=== PATIENT | male | born 1965 | race Caucasian/White ===

== ENCOUNTER 2018-06-09 13:08 | Emergency (ER) | payer BC ==
[2018-06-09] MEDS ORDERED: Acetaminophen/oxyCODONE 325-5 MG Tab PO ONE (13:13)
--- NOTE | 2018-06-09 13:21 | EDM.PDOC ---
ED HPI GENERAL MEDICAL PROBLEM - General Chief Complaint: Lower Extremity Injury/Pain Stated Complaint: INJURED ANKLE Time Seen by Provider: 06/09/18 13:10 Source of Information: Reports: Patient, RN History Limitations: Reports: No Limitations - History of Present Illness INITIAL COMMENTS - FREE TEXT/NARRATIVE: 53 yo male injured his L distal leg just before arrival today when he lost his balance and fell. Not able to bear weight. No other injuries. 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: Other (see below) (none) Left Ankle Pain Score (Numeric/FACES): 8 - Related Data Allergies Allergy/AdvReac Type Severity Reaction Status Date / Time No Known Allergies Allergy Verified 06/09/18 13:23 Home Meds: Home Meds Acetaminophen/HYDROcodone [[place] 325-5 MG] 1 - 2 tab PO Q6H PRN #20 tab [Rx] Aspirin [Halfprin] 1 tab PO DAILY 06/09/18 [History] Fenofibrate 1 tab PO DAILY 06/09/18 [History] Review of Systems - Review of Systems Review Of Systems: See Below Constitutional: Reports: No Symptoms Musculoskeletal: Reports: Leg Pain (L distal) Skin: Reports: No Symptoms Neurological: Reports: No Symptoms ED EXAM, GENERAL - Physical Exam Exam: See Below Exam Limited By: No Limitations General Appearance: Alert, WD/WN, No Apparent Distress Eye Exam: Bilateral Eye: Normal Inspection Ears: Normal External Exam, Normal Canal, Hearing Grossly Normal Ear Exam: Bilateral Ear: Auricle Normal, Canal Normal Nose: Normal Inspection, No Blood Throat/Mouth: Normal Inspection, Normal Lips, Normal Oropharynx, Normal Voice, No Airway Compromise Head: Atraumatic, Normocephalic Neck: Normal Inspection Respiratory/Chest: No Respiratory Distress, Lungs Clear, Normal Breath Sounds, No Accessory Muscle Use Cardiovascular: Regular Rate, Rhythm Extremities: Pedal Edema (subtle swelling to distal tib/fib area. ), Leg Pain ( distal L leg). No: Non-Tender, No Pedal Edema, Rimma's Sign, Increased Warmth, Mottled, Pallor, Redness Neurological: Alert, Oriented Psychiatric: Normal Affect, Normal Mood Skin Exam: Warm, Dry, Intact, Normal Color, No Rash Course - Vital Signs Text/Narrative:: Cam walker and crutches provided. X-rays placed on disc to send with patient. Last Recorded V/S: Last Vital Signs Temp 37.1 C 06/09/18 13:15 Pulse 68 06/09/18 13:15 Resp 16 06/09/18 13:15 BP 116/70 06/09/18 13:15 Pulse Ox 98 06/09/18 13:15 - Orders/Labs/Meds Orders: Active Orders 24 hr Category Date Time Status Tibia Fibula Lt [CR] Stat Exams 06/09/18 13:12 Taken Meds: Medications Discontinued Medications Generic Name Dose Route Start Last Admin Trade Name Freq PRN Reason Stop Dose Admin Oxycodone/Acetaminophen 1 tab 06/09/18 13:13 06/09/18 13:27 Percocet 325-5 Mg PO 06/09/18 13:14 1 tab ONETIME ONE Administration - Radiology Interpretation Free Text/Narrative:: L tib/fib X-ray-min. displaced distal fibula fx Departure - Departure Time of Disposition: 14:00 Disposition: Home, Self-Care 01 Condition: Fair Clinical Impression: Fracture of fibula Fracture of distal fibula Qualifiers: Encounter type: initial encounter Fracture type: closed Fracture morphology: other fracture Laterality: left Qualified Code(s): S82.832A - Other fracture of upper and lower end of left fibula, initial encounter for closed fracture Clinical Impression: (Ruled Out): Fracture of tibia - Discharge Information *PRESCRIPTION DRUG MONITORING PROGRAM REVIEWED*: No *COPY OF PRESCRIPTION DRUG MONITORING REPORT IN PATIENT KAY: No Prescriptions: Acetaminophen/HYDROcodone [[place] 325-5 MG] 1 - 2 tab PO Q6H PRN #20 tab PRN Reason: Pain Referrals: PCP,None [Primary Care Provider] - Forms: ED Department Discharge Additional Instructions: Elevate leg as much as possible above the heart. Take ibuprofen 400 mg every 6 hrs with food for pain relief. Add [place] OR acetaminophen for added relief. F/U with your orthopedic doctor back home within the week, take X-rays along to your appt. Use the Cam walker and crutches to help you get around. - My Orders Last 24 Hours: My Active Orders 06/09/18 13:12 Tibia Fibula Lt [CR] Stat - Assessment/Plan Last 24 Hours: My Active Orders 06/09/18 13:12 Tibia Fibula Lt [CR] Stat
--- NOTE | 2018-06-09 13:53 | CRLCR ---
INDICATION: Injury to distal left leg TECHNIQUE: AP and lateral views of the left tibia and fibula COMPARISON: None FINDINGS AND IMPRESSION: There is an oblique fracture of the distal left fibula, without significant displacement. There is overlying soft tissue swelling. Alignment of the ankle appears anatomic. Please note, some images are incorrectly labeled "Right." Only the left tibia and fibula were imaged. Dictated by Aurelia Menendez MD @ 06/09/2018 1:51:08 PM Dictated by: Aurelia Menendez MD @ 06/09/2018 13:51:16 (Electronically Signed)
== END 2018-06-09 14:15 | disposition home or self-care (01) ==
LOC: JP.ED 13:08
DX: S82.432A Displaced oblique fracture of shaft of left fibula, initial encounter for closed fracture (principal); Z79.82 Long term (current) use of aspirin; Z79.899 Other long term (current) drug therapy; W19.XXXA Unspecified fall, initial encounter
CPT/HCPCS: 73590; 99283; A9270

== ENCOUNTER 2020-06-28 00:29 | Emergency (ER) | payer BC ==
[2020-06-28] MEDS ORDERED: LORazepam 1 MG Tab PO ONE (01:15)
--- NOTE | 2020-06-28 01:22 | EDM.PDOCBH ---
ED HPI GENERAL MEDICAL PROBLEM - General Chief Complaint: Behavioral/Psych Stated Complaint: MENTAL HEALTH Time Seen by Provider: 06/28/20 00:45 Source of Information: Reports: Patient History Limitations: Reports: No Limitations - History of Present Illness INITIAL COMMENTS - FREE TEXT/NARRATIVE: Almas is a 55-year-old male presenting to the ED for suicide ideation and significant anxiety and depression. 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 During the drive up he started developing troubling thoughts of how he was going to and whether a being that by natural causes are is on hand. He became more more distressed about these thoughts being isolated at his cabin tonight and called his . The patient has a very significant history for anxiety and started to perseverate on his thoughts of suicide. He became quite concerned because there is a loaded gun at his cabin and he was scared that he would actually carry it out by self-inflicted gunshot. This prompted him to come into the ED for evaluation. The patient does use recreational marijuana and did smoke marijuana today. He says typically the marijuana helps with his anxiety. He is on citalopram 2.5 mg every other day for his anxiety. He has not clear as to why he is having these thoughts and denies any significant stressors. He reports good sleeping habits. He reports a good appetite. He reports good concentration. He is successful at work. He is concerned that if he goes back to his cabin but he will carry this out. He has been calm and cooperative during the interview. - Related Data Allergies Allergy/AdvReac Type Severity Reaction Status Date / Time No Known Allergies Allergy Verified 06/28/20 00:39 Home Meds: Home Meds Acetaminophen/HYDROcodone [[place] 325-5 MG] 1 - 2 tab PO Q6H PRN #20 tab 06/09/18 [Rx] Aspirin [Halfprin] 1 tab PO DAILY 06/09/18 [History] Fenofibrate 1 tab PO DAILY 06/09/18 [History] Citalopram [Citalopram HBr] 10 mg PO ASDIRECTED 06/28/20 [History] Past Medical History HEENT History: Reports: None Cardiovascular History: Reports: High Cholesterol, Other (See Below) Other Cardiovascular History: bicuspid aorta Genitourinary History: Reports: Renal Calculus Musculoskeletal History: Reports: Fracture Psychiatric History: Reports: Anxiety, Depression, Mood Swings, Suicidal Ideation, Other (See Below) Other Psychiatric History: suicide ideation building for the last several years. tonight is afraid he will take his life tonight. had a scenario in head. - Past Surgical History Head Surgeries/Procedures: Reports: None HEENT Surgical History: Reports: LASIK, Other (See Below) Other HEENT Surgeries/Procedures: PRK surgery,. nasal surgery from broken nose Cardiovascular Surgical History: Reports: None Musculoskeletal Surgical History: Reports: Arthroscopic Knee Social & Family History - Tobacco Use Tobacco Use Status *Q: Former Tobacco User Years of Tobacco use: 20 Packs/Tins Daily: 1 Used Tobacco, but Quit: Yes Month/Year Tobacco Last Used: 2000 - Caffeine Use Caffeine Use: Reports: Energy Drinks, Soda, Tea - Recreational Drug Use Recreational Drug Use: Yes Drug Use in Last 12 Months: Yes Recreational Drug Type: Reports: Marijuana/Hashish Recreational Drug Use Frequency: Weekly ED ROS GENERAL - Review of Systems Review Of Systems: See Below Constitutional: Reports: No Symptoms HEENT: Reports: No Symptoms Respiratory: Reports: No Symptoms Cardiovascular: Reports: No Symptoms Endocrine: Reports: No Symptoms GI/Abdominal: Reports: No Symptoms : Reports: No Symptoms Musculoskeletal: Reports: No Symptoms Skin: Reports: No Symptoms Neurological: Reports: No Symptoms Psychiatric: Reports: Agitation, Anxiety, Depression, Suicidal Ideation Hematologic/Lymphatic: Reports: No Symptoms Immunologic: Reports: No Symptoms ED EXAM, BEHAVIORAL HEALTH - Physical Exam Exam: See Below Exam Limited By: No Limitations General Appearance: Alert, Anxious Eye Exam: Bilateral Eye: EOMI, PERRL Throat/Mouth: Normal Inspection, Normal Lips, Normal Voice, No Airway Compromise Head: Atraumatic, Normocephalic Neck: Normal Inspection, Supple. No: Lymphadenopathy (R), Lymphadenopathy (L) Respiratory/Chest: No Respiratory Distress, Lungs Clear, Normal Breath Sounds Cardiovascular: Normal Peripheral Pulses, Regular Rate, Rhythm GI/Abdominal: Normal Bowel Sounds, Soft, Non-Tender Back Exam: Normal Inspection Extremities: Normal Inspection Neurological: Alert, Normal Mood/Affect, Normal Cognition, Normal Gait, No Motor/Sensory Deficits, Oriented x 3 Psychiatric: Alert, Depressed Mood, Restless, Agitated, Suicidal Thoughts, Pressured Speech, Other (Fidgeting and very anxious) Skin Exam: Warm, Dry, Intact COURSE, BEHAVIORAL HEALTH COMP - Course Vital Signs: Last Vital Signs Temp 36.8 C 06/28/20 00:36 Pulse 106 H 06/28/20 00:36 Resp 16 06/28/20 00:36 BP 145/91 H 06/28/20 00:36 Pulse Ox 91 L 06/28/20 00:36 Orders, Labs, Meds: Active Orders 24 hr Category Date Time Status Isolation [COMM] Stat Oth 06/28/20 00:58 Ordered Laboratory Tests 06/28/20 06/28/20 06/28/20 Range/Units 01:05 01:05 01:05 WBC 9.6 (4.5-11.0) K/uL RBC 4.51 (4.30-5.90) M/uL Hgb 13.7 (12.0-15.0) g/dL Hct 40.0 (40.0-54.0) % MCV 89 (80-98) fL MCH 30 (27-31) pg MCHC 34 (32-36) % Plt Count 409 H (150-400) K/uL Neut % (Auto) 69 H (36-66) % Lymph % (Auto) 18 L (24-44) % [place] % (Auto) 9 H (2-6) % Eos % (Auto) 4 (2-4) % Baso % (Auto) 1 (0-1) % Sodium 142 (140-148) mmol/L Potassium 3.6 (3.6-5.2) mmol/L Chloride 104 (100-108) mmol/L Carbon Dioxide 23 (21-32) mmol/L Anion Gap 15.4 H (5.0-14.0) mmol/L BUN 22 H (7-18) mg/dL Creatinine 1.1 (0.8-1.3) mg/dL Est Cr Clr Drug Dosing 72.55 mL/min Estimated GFR (MDRD) > 60 (>60) Glucose 153 H (74-106) mg/dL Calcium 9.3 (8.5-10.1) mg/dL Total Bilirubin 0.4 (0.2-1.0) mg/dL AST 18 (15-37) U/L ALT 32 (12-78) U/L Alkaline Phosphatase 76 (46-116) U/L Total Protein 7.4 (6.4-8.2) g/dL Albumin 4.5 (3.4-5.0) g/dL Globulin 2.9 (2.3-3.5) g/dL Albumin/Globulin Ratio 1.6 (1.2-2.2) Urine Color (YELLOW) Urine Appearance (CLEAR) Urine pH (5.0-8.0) Ur Specific [place] (1.008-1.030) Urine Protein (NEGATIVE) mg/dL Urine Glucose (UA) (NEGATIVE) mg/dL Urine Ketones (NEGATIVE) mg/dL Urine Occult Blood (NEGATIVE) Urine Nitrite (NEGATIVE) Urine Bilirubin (NEGATIVE) Urine Urobilinogen (0.2-1.0) EU/dL Ur Leukocyte Esterase (NEGATIVE) Urine RBC (0-5) Urine WBC (0-5) Ur Epithelial Cells Amorphous Sediment Urine Bacteria Urine Mucus Urine Opiates Screen (NEGATIVE) Ur Oxycodone Screen (NEGATIVE) Urine Methadone Screen (NEGATIVE) Ur Propoxyphene Screen (NEGATIVE) Ur Barbiturates Screen (NEGATIVE) Ur Tricyclics Screen (NEGATIVE) Ur Phencyclidine Scrn (NEGATIVE) Ur Amphetamine Screen (NEGATIVE) U Methamphetamines Scrn (NEGATIVE) Urine MDMA Screen (NEGATIVE) U Benzodiazepines Scrn (NEGATIVE) U Cocaine Metab Screen (NEGATIVE) U Marijuana (THC) Screen (NEGATIVE) Ethyl Alcohol < 3 mg/dL Influenza Type A RNA (NEGATIVE) RSV RNA (INAAT) (NEGATIVE) Influenza Type B RNA (NEGATIVE) SARS-CoV-2 RNA (HERNANDEZ) (NEGATIVE) 06/28/20 06/28/20 06/28/20 Range/Units 01:19 01:19 01:29 WBC (4.5-11.0) K/uL RBC (4.30-5.90) M/uL Hgb (12.0-15.0) g/dL Hct (40.0-54.0) % MCV (80-98) fL MCH (27-31) pg MCHC (32-36) % Plt Count (150-400) K/uL Neut % (Auto) (36-66) % Lymph % (Auto) (24-44) % [place] % (Auto) (2-6) % Eos % (Auto) (2-4) % Baso % (Auto) (0-1) % Sodium (140-148) mmol/L Potassium (3.6-5.2) mmol/L Chloride (100-108) mmol/L Carbon Dioxide (21-32) mmol/L Anion Gap (5.0-14.0) mmol/L BUN (7-18) mg/dL Creatinine (0.8-1.3) mg/dL Est Cr Clr Drug Dosing mL/min Estimated GFR (MDRD) (>60) Glucose (74-106) mg/dL Calcium (8.5-10.1) mg/dL Total Bilirubin (0.2-1.0) mg/dL AST (15-37) U/L ALT (12-78) U/L Alkaline Phosphatase (46-116) U/L Total Protein (6.4-8.2) g/dL Albumin (3.4-5.0) g/dL Globulin (2.3-3.5) g/dL Albumin/Globulin Ratio (1.2-2.2) Urine Color Yellow (YELLOW) Urine Appearance Clear (CLEAR) Urine pH 5.5 (5.0-8.0) Ur Specific [place] >= 1.030 (1.008-1.030) Urine Protein Negative (NEGATIVE) mg/dL Urine Glucose (UA) Negative (NEGATIVE) mg/dL Urine Ketones Negative (NEGATIVE) mg/dL Urine Occult Blood Negative (NEGATIVE) Urine Nitrite Negative (NEGATIVE) Urine Bilirubin Negative (NEGATIVE) Urine Urobilinogen 0.2 (0.2-1.0) EU/dL Ur Leukocyte Esterase Negative (NEGATIVE) Urine RBC 0-5 (0-5) Urine WBC 0-5 (0-5) Ur Epithelial Cells Not seen Amorphous Sediment Few Urine Bacteria Few Urine Mucus Not seen Urine Opiates Screen Negative (NEGATIVE) Ur Oxycodone Screen Negative (NEGATIVE) Urine Methadone Screen Negative (NEGATIVE) Ur Propoxyphene Screen Negative (NEGATIVE) Ur Barbiturates Screen Negative (NEGATIVE) Ur Tricyclics Screen Negative (NEGATIVE) Ur Phencyclidine Scrn Negative (NEGATIVE) Ur Amphetamine Screen Negative (NEGATIVE) U Methamphetamines Scrn Negative (NEGATIVE) Urine MDMA Screen Negative (NEGATIVE) U Benzodiazepines Scrn Negative (NEGATIVE) U Cocaine Metab Screen Negative (NEGATIVE) U Marijuana (THC) Screen Presumptive positive H (NEGATIVE) Ethyl Alcohol mg/dL Influenza Type A RNA Negative (NEGATIVE) RSV RNA (INAAT) Negative (NEGATIVE) Influenza Type B RNA Negative (NEGATIVE) SARS-CoV-2 RNA (HERNANDEZ) Negative (NEGATIVE) Medications Discontinued Medications Generic Name Dose Route Start Last Admin Trade Name Kimberly PRN Reason Stop Dose Admin Lorazepam 1 mg 06/28/20 01:15 06/28/20 01:46 Lorazepam 1 Mg Tab PO 06/28/20 01:16 1 mg ONETIME ONE Administration Medical Clearance: 06/28/20 02:04 reviewed the patient's exam and labs and he is cleared from a medical standpoint for psychiatric admission. Discharge vs Psych Eval/Treatment:: 06/28/20 02:04 based on my initial impression and evaluation, I am not convinced that the patient requires hospitalization at this time so therefore I am going to ask that [facility] Crisis Team come and evaluate the patient. 06/28/20 04:46 patient was assessed by [facility] Crisis team who feel that despite his vocation, he really does require inpatient hospitalization and stabilization in his current state. We will keep him as a voluntary admission unless he decides that he does not want to go at which point we will have to initiate a 72-hour hold. Currently there are no beds available though we will continue to pursue an inpatient admission on the patient this morning. This was discussed with the patient. Fortunately, given the patient's distance to nearest relations and lack of local support, there is no alternatives to safely manage this short of an inpatient admission. The patient would not like to pursue law enforcement obtaining his weapon as he also has recreational marijuana in his cabin and does not want of face legal consequences of possessing that which remains illegal in the state. 06/28/20 06:33 patient was accepted for admission to the [facility] unit [facility]. We will arrange for transport of the patient. Departure - Departure Time of Disposition: 06:34 Disposition: DC/Tfer to Psych Hosp/Unit 65 Clinical Impression: Anxiety, Suicidal ideation, Marijuana use, episodic Major depression, recurrent Qualifiers: Active/Remission status: currently active Major depression episode severity: severe Psychotic features: without psychotic features Qualified Code(s): F33.2 - Major depressive disorder, recurrent severe without psychotic features - Discharge Information Referrals: PCP,None [Primary Care Provider] - Forms: ED Department Discharge Sepsis Event Note (ED) - Evaluation Sepsis Screening Result: No Definite Risk - Focused Exam Vital Signs: Vital Signs Temp Pulse Resp BP Pulse Ox 06/28/20 00:36 36.8 C 106 H 16 145/91 H 91 L - Problem List & Annotations (1) Major depression, recurrent SNOMED Code(s): 93892744 Code(s): F33.9 - MAJOR DEPRESSIVE DISORDER, RECURRENT, UNSPECIFIED Status: Acute Priority: High Current Visit: Yes Qualifiers: Active/Remission status: currently active Major depression episode severity: severe Psychotic features: without psychotic features Qualified Code(s): F33.2 - Major depressive disorder, recurrent severe without psychotic features (2) Anxiety SNOMED Code(s): 42821470 Code(s): F41.9 - ANXIETY DISORDER, UNSPECIFIED Status: Acute Priority: High Current Visit: Yes (3) Suicidal ideation SNOMED Code(s): 9085476 Code(s): R45.851 - SUICIDAL IDEATIONS Status: Acute Priority: High Current Visit: Yes (4) Marijuana use, episodic SNOMED Code(s): 010085226 Code(s): F12.90 - CANNABIS USE, UNSPECIFIED, UNCOMPLICATED Status: Acute Priority: High Current Visit: Yes - Problem List Review Problem List Initiated/Reviewed/Updated: Yes - My Orders Last 24 Hours: My Active Orders 06/28/20 00:58 Isolation [COMM] Stat - Assessment/Plan Last 24 Hours: My Active Orders 06/28/20 00:58 Isolation [COMM] Stat
[2020-06-28 02:11] LABS: CORONAVIRUS COVID-19 NAA NEGATIVE (NEGATIVE)
== END 2020-06-28 08:52 ==
LOC: JP.ED 00:29
DX: F33.2 Major depressive disorder, recurrent severe without psychotic features (principal); F41.9 Anxiety disorder, unspecified; F12.90 Cannabis use, unspecified, uncomplicated; E78.00 Pure hypercholesterolemia, unspecified; Z79.82 Long term (current) use of aspirin; Z79.899 Other long term (current) drug therapy; Z87.891 Personal history of nicotine dependence; Z20.822 Contact with and (suspected) exposure to COVID-19
CPT/HCPCS: 0241U; 36415; 80053; 80305; 80307; 81001; 85025; 99285; A9270